=== PATIENT | female | born 1970 | race Caucasian/White ===

== ENCOUNTER 2019-01-25 11:16 | Emergency (ER) | payer BC ==
[~2019-01-25] VITALS: Ht 177.8 cm; Wt 100.0 kg
[~2019-01-25 11:16] MED LIST: EPIN0.3P8 IM; TAPE75TA2 PO
[2019-01-25 11:31] VITALS: BP 148/81
== END 2019-01-25 13:31 | disposition home or self-care (01) ==
LOC: ER 11:16
DX: S60.222A Contusion of left hand, initial encounter (principal); I10 Essential (primary) hypertension; F10.99 Alcohol use, unspecified with unspecified alcohol-induced disorder; Z98.890 Other specified postprocedural states; Z88.8 Allergy status to other drugs, medicaments and biological substances; Z79.899 Other long term (current) drug therapy; X50.1XXA Overexertion from prolonged static or awkward postures, initial encounter; Y93.89 Activity, other specified; Y92.89 Other specified places as the place of occurrence of the external cause; Y99.8 Other external cause status; Y90.9 Presence of alcohol in blood, level not specified
CPT/HCPCS: 29125; 73130; 99283

== ENCOUNTER 2019-11-23 11:30 | Emergency (ER) | payer BC ==
[~2019-11-23] VITALS: Ht 177.8 cm; Wt 86.4 kg
[2019-11-23 12:17] LABS: CLARITY,URINE CLEAR (Clear); COLOR,URINE YELLOW (Yellow); GLUCOSE, URINE NEGATIVE (Neg); KETONES,URINE NEGATIVE (Neg); LEUKOCYTE ESTERASE ,URINE MODERATE (Neg); NITRITES, URINE POSITIVE (Neg); OCCULT BLOOD,URINE SMALL (Neg); PROTEIN,URINE NEGATIVE (Neg); UA COLLECTION TYPE CLN CATCH MIDSTREAM
[2019-11-23 12:21] LABS: BACTERIA,URINE 4+ /HPF (Neg); MUCUS STRANDS FEW /LPF (Neg); RBC,URINE 0-2 /HPF (0-2); SQUAMOUS EPITHELIAL CELL,UR MODERATE /LPF (FEW); WBC,URINE 30-50 /HPF (0-4)
[2019-11-23 12:29] LABS: BASOPHILS # (AUTO) 0.1 X10'3 (0-0.2); BASOPHILS % (AUTO) 0.5 % (0-1); EOSINOPHILS # (AUTO) 0.3 X10'3 (0-0.9); EOSINOPHILS % (AUTO) 2.5 % (0-6); HEMATOCRIT 39.3 % (35.0-45.0); HEMOGLOBIN 13.3 g/dl (12.0-16.0); LYMPHOCYTES # (AUTO) 2.6 X10'3 (1.1-4.8); LYMPHOCYTES % (AUTO) 22.5 % (21-51); MEAN CORPUSCULAR HEMOGLOBIN 34.4 PG (27.0-31.0); MEAN CORPUSCULAR HGB CONC 33.8 g/dL (33.0-36.5); MEAN CORPUSCULAR VOLUME 101.9 FL (78-98); MEAN PLATELET VOLUME 8.9 FL (7.4-10.4); MONOCYTES # (AUTO) 0.6 X10'3 (0-0.9); MONOCYTES % (AUTO) 5.5 % (2-12); NEUTROPHILS # (AUTO) 7.9 X10'3 (1.8-7.7); PLATELET COUNT 227 X10'3 (140-440); RED BLOOD COUNT 3.86 X10'6 (4.20-5.60); RED CELL DISTRIBUTION WIDTH 13.2 % (11.5-14.5); WHITE BLOOD COUNT 11.5 X10'3 (4.5-11.0)
[2019-11-23 12:41] LABS: ALANINE AMINOTRANSFERASE 15 U/L (12-78); ALBUMIN 3.7 G/DL (3.4-5.0); ALBUMIN/GLOBULIN RATIO 0.9 (1.1-1.5); ALKALINE PHOSPHATASE 80 IU/L (46-116); ANION GAP 7 (8-16); ASPARTATE AMINO TRANSFERASE 29 U/L (10-37); BILIRUBIN,TOTAL 0.4 MG/DL (0.1-1.0); BLOOD UREA NITROGEN 14 MG/DL (7-18); BUN/CREATININE RATIO 18.7 (6.6-38.0); CALCIUM 8.8 MG/DL (8.5-10.1); CHLORIDE 103 MMOL/L (99-107); CREATININE 0.75 MG/DL (0.40-0.90); GLUCOSE 112 MG/DL (70-104); LIPASE 302 U/L (73-393); POTASSIUM 4.2 MMOL/L (3.5-5.1); SODIUM 138 MMOL/L (135-145); TOTAL CARBON DIOXIDE 27.8 MMOL/L (24-32); TOTAL PROTEIN 7.8 G/DL (6.4-8.2); eGFR 82 ML/MIN
[2019-11-23] MEDS ORDERED: CefTRIAXone/D5W-Rocephin 1gm 50 ML IV ONE (13:45)
[2019-11-23] MEDS ORDERED: HYDROcodone/acetaminophen 10/325mg tab PO ONE (13:50)
[2019-11-23] MEDS ORDERED: HYDR-3965 PO (14:03)
[2019-11-23] MEDS ORDERED: CIPR-230 PO (14:03)
--- NOTE | 2019-11-23 14:12 | NUR ---
ultra sound at bed side
[2019-11-23] MEDS ORDERED: PHEN-786 PO (14:29)
[2019-11-23 14:56] VITALS: BP 132/72
== END 2019-11-23 14:57 | disposition home or self-care (01) ==
LOC: ER 11:31
DX: N10 Acute pyelonephritis (principal); M54.89 Other dorsalgia; R30.0 Dysuria; R11.10 Vomiting, unspecified; I10 Essential (primary) hypertension; Z87.442 Personal history of urinary calculi; Z87.440 Personal history of urinary (tract) infections; Z98.890 Other specified postprocedural states; Z72.89 Other problems related to lifestyle; Z88.8 Allergy status to other drugs, medicaments and biological substances; Z79.2 Long term (current) use of antibiotics; Z79.899 Other long term (current) drug therapy
CPT/HCPCS: 36415; 76775; 80053; 81001; 83690; 85025; 87088; 96365; 99284; J0696; 87077; 87186

== ENCOUNTER 2020-03-16 19:06 | Emergency (ER) | payer BC ==
[~2020-03-16] VITALS: Ht 177.8 cm; Wt 108.2 kg
[~2020-03-16 19:06] MED LIST changes: +PHEN-786 PO
--- NOTE | 2020-03-16 19:39 | NUR ---
OFFICER AT BEDSIDE TALKING WITH PT. LAB GOING TO DRAW BLOOD WORK
--- NOTE | 2020-03-16 19:53 | NUR ---
[facility] OFFICER REMAINS AT BEDSIDE. PT IS CALM IN ROOM , LYING ON GURNEY AWAITING ER PROVIDER.
--- NOTE | 2020-03-16 20:30 | NUR ---
no change in pt condition
[2020-03-16 20:57] VITALS: BP 142/93
== END 2020-03-16 20:59 | disposition home or self-care (01) ==
LOC: EDBD 19:07 → ER 19:07
DX: Z04.1 Encounter for examination and observation following transport accident (principal); I10 Essential (primary) hypertension; Z02.89 Encounter for other administrative examinations; Z88.5 Allergy status to narcotic agent; Z87.448 Personal history of other diseases of urinary system; Z79.899 Other long term (current) drug therapy; Z98.890 Other specified postprocedural states
CPT/HCPCS: 99284